=== PATIENT | female | born 1955 | race Native Hawaiian/Other Pacific Islander ===

== ENCOUNTER 2019-06-24 11:48 | Outpatient (RCR) | payer MEDICARE, MEDICAID, SELFPAY ==
[2019-06-24 12:20] LABS: INR 2.14 (0.8-1.2)
[2019-06-24 12:53] LABS: Phenytoin Dilantin 9.1 ug/mL (10-20)
== END 2019-07-08 23:59 | disposition home or self-care (01) ==
LOC: LAB 11:48
PROVIDERS: Visit Provider Dermatology
DX: I48.91 Unspecified atrial fibrillation (principal); F01.51 Vascular dementia, unspecified severity, with behavioral disturbance; R19.7 Diarrhea, unspecified
CPT/HCPCS: 80185; 85610

== ENCOUNTER 2019-07-01 13:01 | Outpatient (RCR) | payer MEDICARE, MEDICAID, SELFPAY ==
[2019-07-01 15:33] LABS: INR 2.79 (0.8-1.2)
== END 2019-07-08 23:59 | disposition home or self-care (01) ==
LOC: LAB 13:01
PROVIDERS: Visit Provider Dermatology
DX: Z01.89 Encounter for other specified special examinations (principal)
CPT/HCPCS: 85610